=== PATIENT | female | born 1960 | race Caucasian/White ===

== ENCOUNTER 2019-04-06 09:46 | Emergency (ER) | payer OTHER ==
[~2019-04-06] VITALS: Wt 67.0 kg
[2019-04-06 09:51] VITALS: BP 166/78; PULSE 68; RESP 18
[2019-04-06] MEDS ORDERED: ALPR0.25 PO (10:24)
--- NOTE | 2019-04-06 10:27 | ERD ---
ER Documentation Chief Complaint Chief Complaint FEELS EMOTIONALLY UPSET, FEELS STRESSED, WANTS TO SPEAK TO PSYCHIATRIST HPI This is a 58-year-old female who is here because she thought her heart rate was too low and she was going to . She took her blood pressure this morning and she had a pulse of 55 and she thought that was too slow and was worried. She had no symptoms whatsoever of chest pain shortness of breath dizziness near syncope or syncope. She said the heart rate number made her get anxious and she is worried so she came and checked out ROS All systems reviewed and are negative except as per history of present illness. Medications Home Meds Active Scripts Alprazolam* (Xanax*) 0.25 Mg Tablet, 0.25 MG PO Q8H PRN for ANXIETY, #14 TAB Prov:DARON CASTILLO DO 04/06/19 FmHx Family History: No coronary disease Physical Exam Vitals Vital Signs Date Temp Pulse Resp B/P (MAP) Pulse Ox O2 O2 Flow FiO2 Time Delivery Rate 04/06/19 98.1 68 18 166/78 99 09:51 (107) Physical Exam Const: Well-developed, well-nourished Head: Atraumatic, normocephalic Eyes: Normal Conjunctiva, PERRLA, EOMI, normal sclera, no nystagmus ENT: Normal External Ears, Nose and Mouth, moist mucus membranes. Neck: Full range of motion. No meningismus, no lymphadenopathy. Resp: Clear to auscultation bilaterally, no wheezing, rhonchi, rales Cardio: Regular rate and rhythm, heart rate 78, no murmurs, S1 S2 present Abd: Soft, non tender x 4, non distended. Normal bowel sounds, no guarding or rebound, no pulsitile abdominal masses or bruits Skin: No petechiae or rashes, no ecchymosis , no maculopapular rash Back: No midline or flank tenderness Ext: No cyanosis, or edema, FROM x 4, normal inspection, neurovascularly intact x 4 Neur: Awake and alert, STR 5/5 x 4, sensation intact x 4, no focal findings, cerebellum intact Psych: Normal Mood and Affect Procedures/MDM Patient is having anxiety reaction due to the thought that she might have too low heart rate. I gave her reassurance that she will follow-up with her primary Departure Diagnosis: Primary Impression: Anxiety Condition: Stable Patient Instructions: Anxiety Reaction DARON CASTILLO DO April 06, 2019 10:27
== END 2019-04-06 11:14 | disposition home or self-care (01) ==
LOC: E/R 09:46 → MERGE 09:46 → E/R 11:14
DX: F41.9 Anxiety disorder, unspecified (principal)
CPT/HCPCS: 99283

== ENCOUNTER 2019-04-30 23:06 | Emergency (ER) | payer OTHER ==
[~2019-04-30] VITALS: Ht 162.6 cm; Wt 135.0 kg
[~2019-04-30 23:06] MED LIST: ALPR0.25 PO
[2019-04-30 23:34] VITALS: BP 135/90; PULSE 75; RESP 18; Ht 162.6 cm; Wt 135.0 kg
[2019-05-01] MEDS ORDERED: LORAZEPAM 2 MG INJ IV ONE (00:30)
--- NOTE | 2019-05-01 00:42 | ERD ---
ER Documentation Chief Complaint Chief Complaint palpitations x 2 days. denies cp or sob. hx of anxiety HPI Is a 58-year-old female with complaint of palpitations for 2 days. She denies chest pain shortness breath. Patient does have history of anxiety. She denies any other current complaints. ROS All systems reviewed and are negative except as per history of present illness. Medications Home Meds Active Scripts Alprazolam* (Xanax*) 0.25 Mg Tablet, 0.25 MG PO Q8H PRN for ANXIETY, #14 TAB Prov:DARON CASTILLOJay DO 04/06/19 Allergies Allergies: Coded Allergies: Penicillins (Verified Allergy, Unknown, 04/30/19) PMhx/Soc Medical and Surgical Hx: pt denies Medical Hx, pt denies Surgical Hx History of Surgery: No Hx Neurological Disorder: No Hx Respiratory Disorders: No Hx Cardiac Disorders: No Hx Psychiatric Problems: Yes (Anxiety, Bipolar?) Hx Miscellaneous Medical Probl: No Hx Alcohol Use: Yes Hx Substance Use: No Hx Tobacco Use: No Smoking Status: Never smoker Physical Exam Vitals Vital Signs Date Temp Pulse Resp B/P (MAP) Pulse Ox O2 O2 Flow FiO2 Time Delivery Rate 04/30/19 71 13 125/78 100 Room Air 23:56 (94) 04/30/19 98.5 75 18 135/90 99 23:34 (105) Physical Exam Const: No acute distress Head: Atraumatic Eyes: Normal Conjunctiva ENT: Normal External Ears, Nose and Mouth. Neck: Full range of motion. No meningismus. Resp: Clear to auscultation bilaterally Cardio: Regular rate and rhythm, no murmurs Abd: Soft, non tender, non distended. Normal bowel sounds Skin: No petechiae or rashes Back: No midline or flank tenderness Ext: No cyanosis, or edema Neur: Awake and alert Psych: Normal Mood and Affect Results 24 hrs Current Medications Medications Dose Sig/Vin Start Time Status Last (Trade) Ordered Route PRN Stop Time Admin Dose Reason Admin Lorazepam 1 mg ONCE ONCE 05/01/19 DC (Ativan) IV 00:30 05/01/19 00:31 Procedures/MDM EKG: Rate/Rhythm: [Normal Sinus Rhythm] QRS, ST, T-waves: [No changes consistent w/ acute ischemia] Impression: [No evidence of ischemia or arrhythmia] Medical decision making: Very pleasant patient 140 decided to sign AGAINST MEDICAL ADVICE. Upon signing out AMA she was alert and oriented x4 with goal oriented speech and is at risk of leaving AMA including possible due to condition. She repeated these risks in her own words Departure Diagnosis: Primary Impression: Palpitations Condition: PARDEEP Pino May 01, 2019 00:42
== END 2019-05-01 00:20 | disposition left against medical advice (07) ==
LOC: E/R 23:06
DX: R00.2 Palpitations (principal)
CPT/HCPCS: 93005; Z7502